=== PATIENT | female | born 2000 | race Hispanic/Latino ===

== ENCOUNTER 2023-08-26 12:06 | Emergency (ER) | payer MEDICAID ==
[~2023-08-26] VITALS: Ht 165.1 cm; Wt 95.3 kg
[~2023-08-26 12:06] MED LIST: AMOX1TAB16 PO; IBUP-2070 PO; PHEN118L19 PO; PSEU120T62 PO
[2023-08-26 14:27] LABS: ADD UA MICROSCOPIC YES; APPEARANCE,URINE CLEAR (CLEAR); BILIRUBIN,URINE NEGATIVE (NEGATIVE); COLOR,URINE LIGHT-YELLOW (YELLOW); GLUCOSE, URINE (UA) NEGATIVE (NEGATIVE); KETONES,URINE NEGATIVE (NEGATIVE); LEUKOCYTE ESTERASE ,URINE 250 Leu/uL (NEGATIVE); NITRATE,URINE NEGATIVE (NEGATIVE); OCCULT BLOOD,URINE NEGATIVE (NEGATIVE); PROTEIN,URINE NEGATIVE (NEGATIVE); UROBILINOGEN,URINE 0.2 mg/dL (0.2-1.0)
[2023-08-26 14:31] LABS: BACTERIA,URINE RARE /HPF (None Seen)
[2023-08-26] MEDS ORDERED: CEPH500B PO (15:06)
[2023-08-26 15:15] VITALS: BP 116/68; PULSE 71; RESP 18; O2SAT 99
== END 2023-08-26 15:15 | disposition home or self-care (01) ==
LOC: EDH 12:06
DX: N75.0 Cyst of Bartholin's gland (principal); N39.0 Urinary tract infection, site not specified; Z79.899 Other long term (current) drug therapy
CPT/HCPCS: 81001; 87086